=== PATIENT | male | born 1995 | race Caucasian/White ===

== ENCOUNTER 2023-04-24 16:43 | Inpatient (IN) | payer OTHER ==
[2023-04-24 19:03] VITALS: BMI 24.3
[2023-04-24] MEDS ORDERED: ACETAMINOPHEN 325 MG TABLET (FP) PO PRN (19:50)
[2023-04-24] MEDS ORDERED: NALOXONE HCL (KLOXXADO) 8 MG SPRAY NS PRN (19:50)
[2023-04-24] MEDS ORDERED: DICYCLOMINE HCL 10 MG CAPSULE PO PRN (19:50)
[2023-04-24] MEDS ORDERED: MAG HYDROX/AL HYDROX/SIMETH 30 ML UNIT-DOSE CUP PO PRN (19:50)
[2023-04-24] MEDS ORDERED: LOPERAMIDE HCL 2 MG CAPSULE PO PRN (19:50)
[2023-04-24] MEDS ORDERED: guaiFENesin 600 MG TABLET.ER (FP) PO PRN (19:50)
[2023-04-24] MEDS ORDERED: BENZONATATE 200 MG CAPSULE PO PRN (19:50)
[2023-04-24] MEDS ORDERED: NALOXONE HCL 0.4 MG/ML VIAL IM PRN (19:50)
[2023-04-24] MEDS ORDERED: MAGNESIUM HYDROX 2400MG/30ML ORAL SUSPENSION 30 ML CUP PO PRN (19:50)
[2023-04-24] MEDS ORDERED: BISMUTH SUBSALICYLATE 524 MG/30 ML PO PRN (19:50)
[2023-04-24] MEDS ORDERED: METHOCARBAMOL 500 MG TABLET PO PRN (19:50)
[2023-04-24] MEDS ORDERED: BENZOCAINE/MENTHOL (CHLORASEPTIC ) LOZENGE MM PRN (19:50)
[2023-04-24] MEDS ORDERED: ONDANSETRON *ODT* 4 MG TABLET SL PRN (19:50)
[2023-04-24] MEDS ORDERED: chlordiazePOXIDE HCL 25 MG CAPSULE PO PRN (19:50)
[2023-04-24] MEDS ORDERED: POLYETHYLENE GLYCOL (HEALTHYLAX) 3350 17 GM PACKET PO PRN (19:50)
[2023-04-24] MEDS ORDERED: chlordiazePOXIDE HCL 25 MG CAPSULE ONE (20:15)
[2023-04-24] MEDS ORDERED: IBUPROFEN 600 MG TABLET (FP) PO ONE (20:40)
[2023-04-24] MEDS: THIAMINE HCL 100 MG TABLET (FP) PO SCH (22:12)
[2023-04-24] MEDS: MELATONIN 5 MG TABLETS PO SCH (22:12)
[2023-04-24] MEDS: chlordiazePOXIDE HCL 25 MG CAPSULE PO SCH (22:12)
[2023-04-24] MEDS: BACITRACIN 0.9 GM PACKET TP SCH (22:13)
[2023-04-25] MEDS: chlordiazePOXIDE HCL 25 MG CAPSULE PO SCH ×4 (05:40→22:05)
[2023-04-25 09:09] LABS: CHLORIDE 109 mmol/L (98-107); POTASSIUM 4.1 mmol/L (3.5-5.1); SODIUM 140 mmol/L (136-145)
[2023-04-25 09:15] LABS: ALBUMIN 3.4 g/dl (3.4-5.0)
[2023-04-25] MEDS ORDERED: cloNIDine HCL 0.1 MG TABLET PO ONE ×2 (09:16→11:00)
[2023-04-25] MEDS ORDERED: BUPRENORPHINE HCL 150 MCG, BUPRENORPHINE HCL 75 MCG BC PRN (09:16)
[2023-04-25] MEDS ORDERED: BUPRENORPHINE HCL 150 MCG, BUPRENORPHINE HCL 75 MCG BC ONE ×2 (09:16→11:00)
[2023-04-25 09:17] LABS: SGPT/ALT 72 U/L (13-61)
[2023-04-25 09:18] LABS: CREATININE 0.9 mg/dL (0.55-1.3); SGOT/AST 47 U/L (15-37); TOT PROT 6.7 g/dl (6.4-8.2)
[2023-04-25 09:20] LABS: ALK PHOS 82 U/L (45-117)
[2023-04-25 09:21] LABS: CALCIUM 8.6 mg/dL (8.5-10.1)
[2023-04-25 09:22] LABS: ANION GAP 3 mmol/L (4-13); BLOOD UREA NITROGEN 13.9 mg/dL (7-18); CO2 28 mmol/L (21-32); GLUCOSE,RANDOM 111 mg/dL (74-106)
[2023-04-25 09:32] LABS: HEMATOCRIT 38.5 % (35.4-49); HEMOGLOBIN 13.1 GM/dL (11.7-16.9); MCH 28.8 pg (25.7-33.7); MCHC 34.1 g/dl (32.0-35.9); MEAN CELL VOLUME 84.5 fl (80-96); MEAN PLT VOLUME 8.5 fl (7.5-11.1); PLATELET COUNT 254 10^3/uL (134-434); RBC 4.56 M/mm3 (4.00-5.60); RDW 14.7 % (11.9-15.9); WHITE BLOOD COUNT 8.6 K/mm3 (4.0-10.0)
[2023-04-25] MEDS: BACITRACIN 0.9 GM PACKET TP SCH (10:58)
[2023-04-25] MEDS: PRENATAL VITAMINS W/ FOLIC ACID TABLET (FP) PO SCH (10:58)
[2023-04-25] MEDS: IBUPROFEN 600 MG TABLET (FP) PO PRN (15:18)
[2023-04-25] MEDS: hydrOXYzine PAMOATE 25 MG CAPSULE (FP) PO PRN ×2 (15:19→22:58)
[2023-04-25] MEDS: MELATONIN 5 MG TABLETS PO SCH (22:05)
[2023-04-25] MEDS: THIAMINE HCL 100 MG TABLET (FP) PO SCH (22:05)
[2023-04-25] MEDS: cloNIDine HCL 0.1 MG TABLET PO PRN (22:58)
[2023-04-26] MEDS ORDERED: BUPRENORPHINE HCL 150 MCG, BUPRENORPHINE HCL 75 MCG BC PRN
[2023-04-26] MEDS: chlordiazePOXIDE HCL 25 MG CAPSULE PO SCH ×4 (05:34→22:04)
[2023-04-26] MEDS: cloNIDine HCL 0.1 MG TABLET PO PRN (05:35)
[2023-04-26] MEDS: BUPRENORPHINE HCL 150 MCG, BUPRENORPHINE HCL 75 MCG BC SCH ×2 (05:36→17:49)
[2023-04-26] MEDS: BACITRACIN 0.9 GM PACKET TP SCH (10:11)
[2023-04-26] MEDS: PRENATAL VITAMINS W/ FOLIC ACID TABLET (FP) PO SCH (10:11)
[2023-04-26] MEDS ORDERED: ALBUTEROL SO4 HFA INHALER IH PRN (11:57)
[2023-04-26] MEDS: METHOCARBAMOL 500 MG TABLET PO PRN ×2 (13:03→21:45)
[2023-04-26] MEDS ORDERED: BUPRENORPHINE HCL 150 MCG FILM BC ONE (14:00)
[2023-04-26] MEDS ORDERED: BUPRENORPHINE HCL 75 MCG FILM BC ONE (14:00)
[2023-04-26] MEDS: THIAMINE HCL 100 MG TABLET (FP) PO SCH (21:34)
[2023-04-26] MEDS: IBUPROFEN 400 MG TABLET (FP) PO PRN (21:40)
[2023-04-26] MEDS: hydrOXYzine PAMOATE 25 MG CAPSULE (FP) PO PRN (21:40)
[2023-04-26] MEDS: MELATONIN 5 MG TABLETS PO SCH (22:58)
[2023-04-27] MEDS ORDERED: chlordiazePOXIDE HCL 10 MG CAPSULE PO PRN
[2023-04-27] MEDS: cloNIDine HCL 0.1 MG TABLET PO PRN ×2 (00:45→05:31)
[2023-04-27] MEDS: IBUPROFEN 600 MG TABLET (FP) PO PRN (05:31)
[2023-04-27] MEDS: hydrOXYzine PAMOATE 25 MG CAPSULE (FP) PO PRN (05:31)
[2023-04-27] MEDS: BUPRENORPHINE HCL 450 MCG FILM BC SCH ×2 (05:31→17:44)
[2023-04-27] MEDS: METHOCARBAMOL 500 MG TABLET PO PRN ×2 (05:32→22:10)
[2023-04-27] MEDS: chlordiazePOXIDE HCL 10 MG CAPSULE PO SCH ×4 (05:34→22:09)
[2023-04-27] MEDS: BACITRACIN 0.9 GM PACKET TP SCH (10:05)
[2023-04-27] MEDS: PRENATAL VITAMINS W/ FOLIC ACID TABLET (FP) PO SCH (10:05)
[2023-04-27] MEDS: THIAMINE HCL 100 MG TABLET (FP) PO SCH (22:09)
[2023-04-27] MEDS: MELATONIN 5 MG TABLETS PO SCH (22:09)
[2023-04-28] MEDS ORDERED: chlordiazePOXIDE HCL 10 MG CAPSULE PO ONE (00:29)
[2023-04-28] MEDS: chlordiazePOXIDE HCL 10 MG CAPSULE PO SCH ×2 (05:23→17:27)
[2023-04-28] MEDS ORDERED: BUPRENORPHINE/NALOXONE 4 MG/1 MG FILM PACKET SL SCH (06:00)
[2023-04-28] MEDS ORDERED: diphenhydrAMINE HCL 50 MG CAPSULE PO ONE (09:23)
[2023-04-28] MEDS ORDERED: diphenhydrAMINE HCL 25 MG CAPSULE (FP) PO ONE (09:34)
[2023-04-28] MEDS: BACITRACIN 0.9 GM PACKET TP SCH (09:35)
[2023-04-28] MEDS: PRENATAL VITAMINS W/ FOLIC ACID TABLET (FP) PO SCH (09:35)
[2023-04-28] MEDS: IBUPROFEN 600 MG TABLET (FP) PO PRN ×2 (14:24→23:59)
[2023-04-28] MEDS ORDERED: BUPRENORPHINE HCL 2 MG TAB.SUBL SL ONE (18:00)
[2023-04-28] MEDS: cloNIDine HCL 0.1 MG TABLET PO PRN (20:38)
[2023-04-28] MEDS: METHOCARBAMOL 500 MG TABLET PO PRN (22:08)
[2023-04-28] MEDS: hydrOXYzine PAMOATE 25 MG CAPSULE (FP) PO PRN (22:09)
[2023-04-28] MEDS: THIAMINE HCL 100 MG TABLET (FP) PO SCH (22:09)
[2023-04-28] MEDS: MELATONIN 5 MG TABLETS PO SCH (22:09)
[2023-04-29] MEDS ORDERED: chlordiazePOXIDE HCL 10 MG CAPSULE PO ONE (05:00)
[2023-04-29] MEDS: IBUPROFEN 400 MG TABLET (FP) PO PRN (05:33)
[2023-04-29] MEDS ORDERED: BUPRENORPHINE/NALOXONE 8 MG/2 MG FILM PACKET SL ONE (06:00)
[2023-04-29] MEDS ORDERED: BUPRENORPHINE HCL 8 MG TAB.SUBL SL ONE (06:00)
[2023-04-29 09:22] VITALS: BP 122/78; PULSE 98; RESP 20; TEMP 98.1
[2023-04-29] MEDS: BACITRACIN 0.9 GM PACKET TP SCH (09:56)
[2023-04-29] MEDS: PRENATAL VITAMINS W/ FOLIC ACID TABLET (FP) PO SCH (09:56)
== END 2023-04-29 10:09 | disposition home or self-care (01) | DRG 773 ==
LOC: YASAS 16:43 → Y3N 20:31
PROVIDERS: ADMIT Allergy & Immunology; ATTEND Surgery
PROC: HZ2ZZZZ Detoxification Services for Substance Abuse Treatment (ICD-10-PCS; principal; 2023-04-24)
DX: F11.23 Opioid dependence with withdrawal (principal); F10.230 Alcohol dependence with withdrawal, uncomplicated; F17.210 Nicotine dependence, cigarettes, uncomplicated; F19.24 Other psychoactive substance dependence with psychoactive substance-induced mood disorder; F60.3 Borderline personality disorder; F32.9 Major depressive disorder, single episode, unspecified; F41.9 Anxiety disorder, unspecified; J45.20 Mild intermittent asthma, uncomplicated; M54.50 Low back pain, unspecified; G89.29 Other chronic pain; Z91.51 Personal history of suicidal behavior; Z28.310 Unvaccinated for COVID-19; Z28.9 Immunization not carried out for unspecified reason; Z88.8 Allergy status to other drugs, medicaments and biological substances
CPT/HCPCS: 36415; 71046-TC-FY; 80053; 80307; 85027; 86780; 87635; 93005; 93010